=== PATIENT | female | born 1985 | race Caucasian/White ===

== ENCOUNTER → 2016-11-20 | Outpatient (CLI) | payer MEDICARE, OTHER | LOC: LAB 09:59 | DX: N91.2 Amenorrhea, unspecified (principal) | CPT/HCPCS: 84703 ==

== ENCOUNTER → 2016-11-25 | Outpatient (CLI) | payer MEDICARE, OTHER | LOC: EXRD 11-24 13:00 → KOH-I 13:00 | DX: Z79.3 Long term (current) use of hormonal contraceptives (principal) | CPT/HCPCS: 77080 ==